=== PATIENT | male | born 1965 | race Caucasian/White ===

== ENCOUNTER 2023-06-13 12:15 | Outpatient (OUT) | payer MEDICARE, SELFPAY ==
--- NOTE | 2023-06-13 12:25 | US_ITS ---
[address] [address] Patient Name: GODFREY LUCERO MRN: [id number] date: 1965 Sex: M Assigned Patient Location: LAB Current Patient Location: LAB Accession/Order Number: [id number] Exam Date: 06/13/2023 12:26 Report Date: 06/15/2023 07:14 At the request of: SHAIKH MARIA DOLORES Procedure: US scrotum EXAM: Scrotal ultrasound CLINICAL INDICATION: Inguinal Hernia Of Right Side K40.90. TECHNIQUE: The scrotal ultrasound was obtained with grayscale and color Doppler imaging as well as waveform analysis. FINDINGS: Testicles: Bilateral testicles are homogenous in echotexture. No mass or microlithiasis evident. The right testicle measures 5.7 x 2.4 x 3.3 cm. The left testicle measures 4.5 x 2.5 x 2.9 cm. Extratesticular findings: Small right hydrocele. No epididymal enlargement or mass. Right inguinal hernia containing bowel. Testicular doppler: Symmetric color flow is visualized in both testicles. Arterial and venous waveforms are detected bilaterally. No asymmetric epididymal hyperemia. US/US scrotum IMPRESSION: 1. Right inguinal hernia containing bowel. 2. Small right hydrocele. Electronically authenticated by: MARYSE MUNGUIA Date: 06/15/2023 07:14
[2023-06-13 13:19] LABS: Basophils Absolute Auto 0.1 10^3/uL (0.0-0.1); Basophils Percent Auto 1.2 % (0.2-2.0); Eosinophils Absolute Auto 0.3 10^3/uL (0.0-0.7); Eosinophils Percent Auto 4.2 % (0.9-7.0); Hematocrit 45.1 % (42.0-54.0); Hemoglobin 15.3 g/dL (14.0-18.0); Immature Granulocytes Abs Auto 0.02 10^3/uL (0.00-0.03); Immature Granulocytes Pct Auto 0.2 % (0.0-0.5); Lymphocytes Percent Auto 36.5 % (20.5-60.0); Mean Corpuscular HGB Conc 33.9 g/dL (29.9-35.2); Mean Corpuscular Hemoglobin 32.4 pg (25.9-34.0); Mean Corpuscular Volume 95.6 fL (80.0-94.0); Mean Platelet Volume 8.8 fL (9.5-13.5); Monocytes Absolute Auto 0.8 10^3/uL (0.3-0.8); Monocytes Percent Auto 10.4 % (1.7-12.0); Neutrophils Absolute Auto 3.8 10^3/uL (1.4-6.5); Neutrophils Percent Auto 47.5 % (43.0-75.0); Platelet Count 283 10^3/uL (150-450); Red Blood Count 4.72 10^6/uL (4.70-6.10); White Blood Count 8.1 10^3/uL (4.0-11.0)
[2023-06-13 13:44] LABS: Alanine Aminotransferase 49 U/L (16-63); Albumin Level 3.6 g/dL (3.4-5.0); Alkaline Phosphatase 84 U/L (46-116); Anion Gap 10.1; Aspartate Amino Transferase 37 U/L (15-37); BUN Creatinine Ratio 18.8; Bilirubin Total 0.5 mg/dL (0.2-1.0); Calcium 8.5 mg/dL (8.5-10.1); Carbon Dioxide 29.5 mmol/L (21.0-32.0); Chloride 103 mmol/L (98-107); Chol HDL Ratio 3.3; Cholesterol 140 mg/dL (<=200); Estimated Average Glucose 97 mg/dL; Estimated GFR (African America >60 (>=60); Estimated GFR (Non-African Ame >60 (>=60); Globulin 3.7 g/dL; Glucose 93 mg/dL (74-106); HDL Cholesterol 43 mg/dL (40-60); LDL Cholesterol Calculated 84.2 mg/dL; Potassium 4.6 mmol/L (3.5-5.1); Sodium 138 mmol/L (136-145); Total Protein 7.3 g/dL (6.4-8.2); Triglycerides 64 mg/dL (<=150); VLDL CHOLESTEROL 12.8 mg/dL
== END 2023-06-13 12:16 | disposition home or self-care (01) ==
PROVIDERS: PCP Internal Medicine; Visit Provider Internal Medicine
DX: I10 Essential (primary) hypertension (principal); Z13.220 Encounter for screening for lipoid disorders; Z13.1 Encounter for screening for diabetes mellitus; K40.90 Unilateral inguinal hernia, without obstruction or gangrene, not specified as recurrent; N43.3 Hydrocele, unspecified
CPT/HCPCS: 36415; 76870; 80053; 80061; 83036; 85025

== ENCOUNTER 2023-07-18 08:46 | Outpatient (OUT) | payer MEDICARE, SELFPAY ==
--- NOTE | 2023-07-18 08:50 | ECG_ITS ---
[facility] Test Date: 2023-07-18 Pat Name: GODFREY LUCERO Department: Room: - Gender: Male [employer] C[employer]: : 1965 Requested By: SHAIKH MARIA DOLORES Order Number: [id number] Reading MD: SIRIA RO Measurements Intervals [place] Rate: 55 P: 11 DE: 149 QRS: 24 QRSD: 101 T: 43 QT: 439 QTc: 423 Interpretive Statements SINUS BRADYCARDIA No previous ECG available for comparison Electronically Signed On 07-19-2023 12:34:40 EDT by SIRIA RO
== END 2023-07-18 08:47 | disposition home or self-care (01) ==
LOC: PST 08:46
PROVIDERS: PCP Internal Medicine; Visit Provider Surgery
DX: Z01.810 Encounter for preprocedural cardiovascular examination (principal); K40.90 Unilateral inguinal hernia, without obstruction or gangrene, not specified as recurrent
CPT/HCPCS: 93005

== ENCOUNTER 2023-07-22 09:00 | Day surgery (SDC) | payer MEDICARE, SELFPAY ==
[2023-07-18 09:30] VITALS: BP 131/84; PULSE 62; RESP 20; TEMP 36.5; O2SAT 97; BMI 30.4
[2023-07-22] VITALS (12 sets, daily range): BP systolic 106–157; BP diastolic 69–102; PULSE 53–69; RESP 10–34; TEMP 36.2–36.5; O2SAT 96–100; BMI 30.4
[2023-07-22] MEDS: LACTATED RINGER'S SOLUTION 1,000 ML 50 ML IV (09:25)
[2023-07-22] MEDS: CEFAZOLIN SODIUM/DEXTROSE,ISO 2 GM/50 ML PIGGYBACK IV (10:15)
[2023-07-22] MEDS: BUPIVACAINE HCL 0.25% PF 25 MG/10 ML VIAL INJ (11:21)
[2023-07-22] MEDS: 0.9 % SODIUM CHLORIDE 10 ML SYRINGE - SALINE FLUSH INJ (11:21)
[2023-07-22] MEDS: BUPIVACAINE LIPOSOME/PF 266 MG/13.3 ML VIAL INJ (11:21)
[2023-07-22] MEDS: LACTATED RINGER'S SOLUTION 1,000 ML 1000 ML IV (12:22)
--- NOTE | 2023-07-22 13:18 | PM.GSPRC ---
Date of procedure: 07/22/23 Indications for Procedure: Patient is a #58-year-old male who was seen recently for an apparent right inguinal hernia. Following evaluation robotic repair of the right inguinal hernia was recommended. The risks benefits options and potential complications of the procedure were discussed in detail with the patient agreed to proceed and consent was signed. Pre-op diagnosis: Right Inguinal hernia Post-op diagnosis: same as pre-op Procedure: Robotic repair of # inguinal hernia with mesh Anesthesia: JACQUELINEA Surgeon: Km Mcgraw Procedure Summary: Patient was brought to the operating room and placed in the supine position. Gen. anesthesia was induced the patient was intubated. The abdomen is prepped in sterile fashion. Anesthesia performed a regional block. Abdomen is then again prepped and draped in sterile fashion. following local anesthesia a small incision was made in the left upper abdomen. with laparoscopic guidance an 8 mm robotic trocar was placed through this incision and advanced into the peritoneal cavity. The abdomen is then insufflated to 15 mmHg of carbon dioxide. The camera was introduced and safe port site entry confirmed. Two additional 8 mm robotic ports were placed one in the right lateral abdomen and one just superior to the umbilicus following local anesthesia under direct visualization. The patient was then placed in Trendelenburg position. At this time the da Sylvie XI was brought to the field. All ports were docked and instruments introduced in standard fashion. At this time I left the operating table and attended the surgeon's student success counselor. The right inguinal hernia was readily identified. The peritoneum was incised above the defect from the midline extending to the right lateral abdomen. The peritoneal flap was then created with electrocautery as well as blunt and sharp dissection. A relatively large hernia sac was identified. With a combination of the traction as well as cautery and sharp dissection the sac was freed from the associated cord structures and completely reduced to the level of the peritoneum. William's ligament was then identified also. The pre-peritoneal space was then further expanded to allow mesh placement. A 15 cm x 9 cm progrip mesh was then introduced into the peritoneal cavity. This was placed in the preperitoneal space and unfolded and flattened with excellent coverage of the hernia defect as well as other potential sites for defects. Hemostasis was noted. The peritoneal defect was then closed with a running suture of 3-0V LOC. No other abnormalities were noted. The da Sylvie XI was then undocked and the abdomen desufflated with removal of the ports. Incisions were closed with subcuticular sutures of 4-0 Vicryl. Sponge needle and instrument counts were correct at the end of the procedure. The patient tolerated the procedure well and was transferred to the recovery area in stable condition. Estimated blood loss (mL): 5 Specimens: None Complications: No
== END 2023-07-22 14:20 | disposition home or self-care (01) ==
PROVIDERS: PCP Internal Medicine; Visit Provider Surgery
PROC: (CPT 49650; principal; 2023-07-22 10:00)
DX: K40.90 Unilateral inguinal hernia, without obstruction or gangrene, not specified as recurrent (principal); F17.210 Nicotine dependence, cigarettes, uncomplicated
CPT/HCPCS: 49650; 64488; C1781; J1170; J2704